=== PATIENT | male | born 2000 | race Caucasian/White ===

== ENCOUNTER 2019-07-15 16:18 | Emergency (ER) | payer BC ==
[2019-07-15 16:42] VITALS: BP 125/82
--- NOTE | 2019-07-15 17:56 | UC ---
Throat Pain/Nasal Daniel HPI - HPI Summary HPI Summary: 18-year-old male comes in with a chief complaint of 4-5 days of upper respiratory tract infection symptoms. He's had runny nose which is yellow. He has some sinus pressure and postnasal drip., Cough without any shortness of breath no wheezing. No recent fevers. He's tried some [id number] medicines which helped some symptoms but overall he is not getting any better he is getting worse. - History of Current Complaint Chief Complaint: UCGeneralIllness Stated Complaint: SINUS, EAR PAIN Time Seen by Provider: 07/15/19 17:35 Pain Intensity: 5 - Allergies/Home Medications Allergies/Adverse Reactions: Allergies Allergy/AdvReac Type Severity Reaction Status Date / Time No Known Allergies Allergy Verified 07/15/19 16:42 Home Medications: Home Medications Dm/PE/Acetaminophen/Doxylamine [Vicks Dayquil-Nyquil Cold-Flu] 15 ml PO Q6H [History Confirmed 07/15/19] Guaifenesin/Pseudoephedrne HCl [Mucinex D ER 1,200-120 mg Tab] 1 each PO Q12H [History Confirmed 07/15/19] Lisdexamfetamine(NF) [Vyvanse(NF)] 50 mg PO DAILY 07/15/19 [History Confirmed ] PMH/Surg Hx/FS Hx/Imm Hx Previously Healthy: Yes - Surgical History Surgical History: None - Family History Known Family History: Positive: Non-Contributory - Social History Alcohol Use: Weekly Substance Use Type: None Smoking Status (MU): Never Smoked Tobacco Review of Systems All Other Systems Reviewed And Are Negative: Yes Constitutional: Positive: Negative Skin: Positive: Negative Eyes: Positive: Negative ENT: Positive: Sore Throat, Nasal Discharge, Sinus Congestion, Sinus Pain/ Tenderness Respiratory: Positive: Cough Cardiovascular: Positive: Negative Gastrointestinal: Positive: Negative Motor: Positive: Negative Neurovascular: Positive: Negative Musculoskeletal: Positive: Arthralgia Neurological: Positive: Negative Psychological: Positive: Negative Is Patient Immunocompromised?: No Physical Exam Triage Information Reviewed: Yes Appearance: Well-Appearing, No Pain Distress, Well-Nourished Vital Signs: Initial Vital Signs Temp 98.4 F 07/15/19 16:38 Pulse 95 07/15/19 16:38 Resp 16 07/15/19 16:38 BP 125/82 07/15/19 16:38 Pulse Ox 100 07/15/19 16:38 Vital Signs Reviewed: Yes Eye Exam: Normal Eyes: Positive: Conjunctiva Clear ENT: Positive: Pharyngeal erythema, Nasal congestion, Nasal drainage, TMs normal Neck: Positive: Supple, No Lymphadenopathy Respiratory: Positive: Lungs clear, Normal breath sounds, No respiratory distress Cardiovascular: Positive: RRR Musculoskeletal: Positive: Strength Intact, ROM Intact Neurological: Positive: Alert, Muscle Tone Normal Psychological: Positive: Age Appropriate Behavior Skin Exam: Normal Throat Pain/Nasal Course/Dx - Course Course Of Treatment: DISCUSSED VIRAL VERSES BACTERIAL INFECTIONS AND THE ROLE OF ANTIBIOTICS. THE PATIENT PREFERS TO BE ON ANTIBIOTICS AT THIS TIME. - Differential Dx/Diagnosis Provider Diagnosis: Upper respiratory infection Discharge ED - Sign-Out/Discharge Documenting (check all that apply): Patient Departure All imaging exams completed and their final reports reviewed: No Studies - Discharge Plan Condition: Stable Disposition: HOME Prescriptions: Amoxicillin PO (*) [Amoxicillin 875 MG (*)] 875 mg PO BID #20 tab Patient Education Materials: Upper Respiratory Infection (ED) Referrals: [facility], [facility] [Provider Group] Additional Instructions: FOLLOW UP WITH [facility]. GET REEVALUATED SOONER IF NOT IMPROVED OR WORSE OR ANY QUESTIONS OR CONCERNS. - Billing Disposition and Condition Condition: STABLE Disposition: Home
== END 2019-07-15 18:03 | disposition home or self-care (01) ==
LOC: UCEAST 16:18
DX: J06.9 Acute upper respiratory infection, unspecified (principal)
CPT/HCPCS: 99202; G0463